=== PATIENT | female | born 1980 | race Caucasian/White ===

== ENCOUNTER 2020-03-30 09:21 | Emergency (ER) | payer OTHER ==
[~2020-03-30] VITALS: Ht 170.2 cm; Wt 65.8 kg
[~2020-03-30 09:21] MED LIST: CIPRO500 MG PO; FLUOXETINE HCL10 MG PO; FLUOXETINE HCL20 MG PO; FOLIC ACID1 MG PO; HYDROCODON-ACE1 EA10 PO; HYDROCODON-ACE1 EA11 PO; LORAZEPAM1 MG PO; MELOXICAM15 MG PO; NICORETTE2 MG MM; NICOTINE PATCH1 EA TD; NICOTINE PATCH1 EACH TD; NORCO 5-325 TA1 EACH PO; ONE DAILY WOME1 EACH PO; OXYCODONE HCL5 MG PO; OXYCODONE-ACET1 EAC1 PO; PHENERGAN12.5 MG RC; PROMETHAZINE HC25 M1 PO; ROBAXIN-750750 MG PO; VITAMIN B-1100 M1 PO; ZOFRAN ODT4 MG PO; ZOFRAN ODT8 MG PO; ZOFRAN4 MG PO
== END 2020-03-30 13:26 | disposition home or self-care (01) ==
LOC: ED 09:21
DX: R10.13 Epigastric pain (principal); F17.200 Nicotine dependence, unspecified, uncomplicated; Z88.0 Allergy status to penicillin
CPT/HCPCS: 71045; 80053; 81001; 83690; 84703; 85025; 96374; 96375; 99284-25; J1885; J2405

== ENCOUNTER 2020-04-17 13:33 | Emergency (ER) | payer OTHER ==
[~2020-04-17] VITALS: Ht 170.2 cm; Wt 65.8 kg
--- OUTSIDE RECORDS SUMMARY | 2020-04-17 13:36 | XMS ---
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 Radha has no Care Guidelines for this patient. N[facility] V[facility] (12 MO.) [facility] NOTE: Visits indicate total known visits. ED/C VISIT TRACKING (12 MO.) [facility]2020 13[facility] [place] [facility] COMPLAINT: - ABD PAIN, NAUSEA, VOMITING 03/30/2020 09:22 [facility] [place] TYPE: Emergency COMPLAINT: - ABDOMINAL PAIN DIAGNOSES: - Nicotine dependence, unspecified, uncomplicated - Epigastric pain - Left upper quadrant pain - Allergy status to penicillin INPATIENT VISIT TRACKING (12 MO.) No inpatient visits to display in this time frame [id number]
[2020-04-17] MEDS ORDERED: ONDANSETRON ODT8 MG PO (19:16)
[2020-04-18] MEDS ORDERED: NORCO 7.5-3251 EACH PO (18:54)
== END 2020-04-17 19:26 | disposition home or self-care (01) ==
LOC: ED 13:33
DX: K29.00 Acute gastritis without bleeding (principal); F17.200 Nicotine dependence, unspecified, uncomplicated; Z88.0 Allergy status to penicillin
CPT/HCPCS: 74177; 80053; 81001; 83690; 84703; 85025; 96361; 96375; 96376; 99284-25; J1170; J2405; J7030

== ENCOUNTER 2020-04-18 16:15 | Emergency (ER) | payer OTHER ==
[~2020-04-18] VITALS: Ht 170.2 cm; Wt 65.8 kg
[~2020-04-18 16:15] MED LIST changes: +ONDANSETRON ODT8 MG PO
--- OUTSIDE RECORDS SUMMARY | 2020-04-18 16:18 | XMS ---
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 - 2 Visits in 30 Days CARE PROVIDERS There are no care providers on record at this time. Radha has no Care Guidelines for this patient. Nando VISIT COUNT (12 MO.) [address] [facility] TOTAL 3 NOTE: Visits indicate total known visits. ED/C VISIT TRACKING (12 MO.) 04/18/2020 16:[address] [facility] [address] [facility] [place] TYPE: Emergency COMPLAINT: - ABD PAIN 04/17/2020 13:33 [facility] [place] TYPE: Emergency COMPLAINT: - ABD PAIN, NAUSEA, VOMITING 03/30/2020 09:22 [facility] [place] TYPE: Emergency COMPLAINT: - ABDOMINAL PAIN DIAGNOSES: - Nicotine dependence, unspecified, uncomplicated - Epigastric pain - Left upper quadrant pain - Allergy status to penicillin INPATIENT VISIT TRACKING (12 MO.) No inpatient visits to display in this time frame [id number]
[2020-04-18] MEDS ORDERED: NORCO 7.5-3251 EACH PO (18:54)
== END 2020-04-18 19:18 | disposition home or self-care (01) ==
LOC: ED 16:15
DX: K86.1 Other chronic pancreatitis (principal); F17.200 Nicotine dependence, unspecified, uncomplicated; Z88.0 Allergy status to penicillin
CPT/HCPCS: 80053; 81001; 83690; 85025; 96361; 96374; 96375; 99284-25; A9270; J1170; J2405; J7030

== ENCOUNTER 2020-04-20 05:57 | Emergency (ER) | payer OTHER ==
[~2020-04-20] VITALS: Ht 170.2 cm; Wt 65.8 kg
[~2020-04-20 05:57] MED LIST changes: +NORCO 7.5-3251 EACH PO
--- OUTSIDE RECORDS SUMMARY | 2020-04-20 06:00 | XMS ---
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 Radha has no Care Guidelines for this patient. [facility] MO[facility] NOTE: Visits indicate total known visits. ED/C VISIT TRACKING (12 MO.) [facility]20[facility]2020 05[facility]58 [facility] [place] [facility] COMPLAINT: - ABDOMINAL PAIN/BLOOD IN URINE 04/18/2020 16:15 [facility] [place] TYPE: Emergency COMPLAINT: - ABD PAIN 04/17/2020 13:33 [facility] [place] TYPE: Emergency COMPLAINT: - ABD PAIN, NAUSEA, VOMITING 03/30/2020 09:22 [facility] [place] TYPE: Emergency COMPLAINT: - ABDOMINAL PAIN DIAGNOSES: - Nicotine dependence, unspecified, uncomplicated - Epigastric pain - Left upper quadrant pain - Allergy status to penicillin INPATIENT VISIT TRACKING (12 MO.) No inpatient visits to display in this time frame [id number]
[2020-04-20] MEDS ORDERED: CARAFATE1 GM PO (06:53)
== END 2020-04-20 08:08 | disposition home or self-care (01) ==
LOC: ED 05:57
DX: R10.13 Epigastric pain (principal); F17.200 Nicotine dependence, unspecified, uncomplicated; Z88.0 Allergy status to penicillin
CPT/HCPCS: 80053; 81001; 82150; 83690; 84703; 85025; 96374; 96375; 99284-25; C9113; G0480; J2270; J2405; J7030

== ENCOUNTER 2020-04-24 06:18 | Emergency (ER) | payer OTHER ==
[~2020-04-24] VITALS: Ht 170.2 cm; Wt 65.8 kg
[~2020-04-24 06:18] MED LIST changes: +CARAFATE1 GM PO
--- OUTSIDE RECORDS SUMMARY | 2020-04-24 06:20 | XMS ---
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 Radha has no Care Guidelines for this patient. Care History Medical/Surgical 04/20/2020 [facility] - PATIENT HAS NOT SEEN AND OR ESTABLISHED CARE WITH DR JULIAN. - PLEASE REFER PATIENT TO WALK IN CLINIC TO ESTABLISH CARE WITH A PROVIDER. - NO PCP LETTER SENT TO PATIENT. E.D. VISIT COUNT (12 MO.) 5 [facility] TOTAL 5 NOTE: Visits indicate total known visits. ED/C VISIT TRACKING (12 MO.) 04/24/2020 06:19 [facility] [place] TYPE: Emergency COMPLAINT: - ABD PAIN 04/20/2020 05:58 [facility] [place] TYPE: Emergency COMPLAINT: - ABDOMINAL PAIN/BLOOD IN URINE DIAGNOSES: - Allergy status to penicillin - Nicotine dependence, unspecified, uncomplicated - Epigastric pain 04/18/2020 16:15 [facility] [place] [place] TYPE: Emergency COMPLAINT: - ABD PAIN DIAGNOSES: - Other chronic pancreatitis - Unspecified abdominal pain - Nicotine dependence, unspecified, uncomplicated - Allergy status to penicillin 04/17/2020 13:[address] [facility] [place] TYPE: Emergency COMPLAINT: - ABD PAIN, NAUSEA, VOMITING DIAGNOSES: - Allergy status to penicillin - Acute gastritis without bleeding - Nicotine dependence, unspecified, uncomplicated - Upper abdominal pain, unspecified 03/30/2020 09:22 [facility] [place] TYPE: Emergency COMPLAINT: - ABDOMINAL PAIN DIAGNOSES: - Nicotine dependence, unspecified, uncomplicated - Epigastric pain - Left upper quadrant pain - Allergy status to penicillin INPATIENT VISIT TRACKING (12 MO.) No inpatient visits to display in this time frame [id number]
[2020-04-24] MEDS ORDERED: OMEPRAZOLE20 MG PO (06:36)
== END 2020-04-24 11:54 | disposition home or self-care (01) ==
LOC: ED 06:18
DX: R10.13 Epigastric pain (principal); F17.200 Nicotine dependence, unspecified, uncomplicated; Z88.0 Allergy status to penicillin; Z79.899 Other long term (current) drug therapy
CPT/HCPCS: 76705; 80053; 81001; 83690; 84703; 85025; 96374; 96375; 96376; 99284-25; J1170; J1885; J2405

== ENCOUNTER 2020-08-11 07:36 | Emergency (ER) | payer OTHER ==
[~2020-08-11] VITALS: Ht 170.2 cm; Wt 61.7 kg
[~2020-08-11 07:36] MED LIST changes: +CREON DR 24,001 EACH PO; +OMEPRAZOLE20 MG PO; +WELLBUTRIN XL150 MG PO
--- OUTSIDE RECORDS SUMMARY | 2020-08-11 07:38 | XMS ---
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 Radha has no Care Guidelines for this patient. Care History Medical/Surgical 04/26/2020 [facility] - [facility]W CALLED PATIENT- LEFT A VOICEMAIL. - [facility]OUGH [facility]. 04/20/2020 [facility] - PATIENT HAS NOT SEEN AND OR ESTABLISHED CARE WITH DR JULIAN. - PLEASE REFER PATIENT TO WALK IN CLINIC TO ESTABLISH CARE WITH A PROVIDER. - NO PCP LETTER SENT TO PATIENT. EMelony VISIT COUNT (12 MO.) 6 [facility] TOTAL 6 NOTE: Visits indicate total known visits. ED/UCC VISIT TRACKING (12 MO.) 08/11/2020 07:36 [facility] [place] TYPE: Emergency COMPLAINT: - ABD PAIN 04/24/2020 06:19 [facility] [place] TYPE: Emergency COMPLAINT: - ABD PAIN DIAGNOSES: - Epigastric pain - Other alf (current) drug therapy - Allergy status to penicillin - Nicotine dependence, unspecified, uncomplicated - Unspecified abdominal pain 04/20/2020 05:58 [facility] [place] TYPE: Emergency COMPLAINT: - ABDOMINAL PAIN/BLOOD IN URINE DIAGNOSES: - Allergy status to penicillin - Nicotine dependence, unspecified, uncomplicated - Epigastric pain 04/18/2020 16:15 [facility] [place] TYPE: Emergency COMPLAINT: - ABD PAIN DIAGNOSES: - Other chronic pancreatitis - Unspecified abdominal pain - Nicotine dependence, unspecified, uncomplicated - Allergy status to penicillin 04/17/2020 13:33 [facility] [place] TYPE: Emergency [...] visits to display in this time frame [id number]
[2020-08-11] MEDS ORDERED: PRILOSEC OTC20 MG PO (11:30)
[2020-08-11] MEDS ORDERED: CARAFATE1 GM PO ×2 (11:30→11:31)
== END 2020-08-11 11:47 | disposition home or self-care (01) ==
LOC: ED 07:36
DX: K59.00 Constipation, unspecified (principal); Z87.891 Personal history of nicotine dependence; Z88.0 Allergy status to penicillin; Z79.899 Other long term (current) drug therapy
CPT/HCPCS: 74018; 80053; 81001; 82150; 83690; 83735; 84703; 85025; 96374; 99284-25; J1885

== ENCOUNTER 2022-10-20 07:05 | Day surgery (SDC) | payer OTHER ==
[~2022-10-20] VITALS: Ht 170.2 cm; Wt 56.0 kg
[~2022-10-20 07:05] MED LIST changes: +PRAZOSIN HCL5 MG PO; +PRILOSEC OTC20 MG PO; +PRISTIQ ER100 MG PO; +TRAZODONE HCL100 MG PO
[2022-10-20] MEDS ORDERED: TRAMADOL HCL50 MG PO (08:47)
--- NOTE | 2022-10-20 08:57 | NUR ---
10/20/22 0857 Nan Beckett 0847 PT TO PACU SLEEPING O2 VIA MASK. ICE TO RT WRIST.
--- NOTE | 2022-10-23 07:11 | OR ---
[facility] [address] [place] [place] [address] Signed DATE OF OPERATION: 10/20/2022 SURGEON: Carmen Beckett MD PREOPERATIVE DIAGNOSIS: Carpal tunnel syndrome, right. POSTOPERATIVE DIAGNOSIS: Carpal tunnel syndrome, right. PROCEDURE PERFORMED: Carpal tunnel release, right. UM RN: None. ANESTHESIA: Chirag block. TOURNIQUET TIME: 20 minutes. BRIEF HISTORY: Sheri is a 42-year-old female with significant carpal tunnel by nerve conduction studies. She has pain and numbness consistent with this. Risks and benefits of operative treatment were discussed with her and she elected to proceed. DESCRIPTION OF PROCEDURE: Once consent was obtained, she was taken to the operating room. After adequate anesthesia, she was left on the day surgery cart with a hand table. The arm was prepped and draped in a standard sterile fashion and the incision was made in the distal wrist crease transversely, carried through the skin and subcutaneous tissue. No palmaris longus was encountered. The transverse carpal ligament was identified under loupe magnification and was dissected free of overlying soft tissue proximally and distally. It was then released using the tenotomy scissors, carried 1 cm proximally and distally, it was released to the distal extent. This again was done under direct visualization. The canal was then palpated using the [place] and was found to be completely released. The wound was copiously irrigated with normal saline, closed with 3-0 nylon and injected with 6 mL of 0.25% plain Marcaine. The wound was then dressed with bacitracin, Adaptic, 4 x Electronically Signed By: CARMEN BECKETT MD 10/23/22 0711 PATIENT NAME: SHERI LERMA OPERATIVE REPORT DATE OF : 82 REPORT #: [id number] PHYSICIAN: CARMEN BECKETT MD PCP: PALMA GONZALES MD REPORT IS CONFIDENTIAL AND NOT TO BE RELEASED WITHOUT AUTHORIZATION [facility] [address] [place] [address] Signed 8s, and gauze. She tolerated the procedure well. All sponge, needle, and instrument counts were correct. Carmen Beckett MD BA/SHUL /[id number] Copies: ~ Electronically Signed By: CARMEN BECKETT MD 10/23/22 0711 PATIENT NAME: SHERI LERMA OPERATIVE REPORT DATE OF : 82 REPORT #: [id number] PHYSICIAN: CARMEN BECKETT MD PCP: PALMA GONZALES MD REPORT IS CONFIDENTIAL AND NOT TO BE RELEASED WITHOUT AUTHORIZATION
== END 2022-10-20 09:25 | disposition home or self-care (01) ==
LOC: DS 07:05
PROVIDERS: ATTEND Specialist
PROC: 01N50ZZ Release Median Nerve, Open Approach (ICD-10-PCS; principal; 2022-10-20 08:15)
DX: G56.01 Carpal tunnel syndrome, right upper limb (principal); K21.9 Gastro-esophageal reflux disease without esophagitis; F32.A Depression, unspecified; Z79.899 Other long term (current) drug therapy
CPT/HCPCS: 36415; 84703; J0690; J2704; J7121